=== PATIENT | female | born 1965 | race Caucasian/White ===

== ENCOUNTER 2017-02-05 11:13 | Emergency (ER) | payer OTHER ==
[2017-02-05 12:24] LABS: Blood, Urine Trace (Negative); Glucose, Urine (Dipstick) Negative (Negative); Leukocyte Small (Negative); Nitrite Positive (Negative); Protein, Urine (Dipstick) Negative (Neg-Trace); Specific Gravity, Urine 1.025 (1.005-1.030); pH, Urine 5.5 (5.0-9.0)
[2017-02-05 12:40] LABS: Bilirubin Negative (Negative); Clarity Cloudy (Clear)
[2017-02-05 12:41] LABS: Bacteria/HPF 4+ HPF (None Seen); Crystals/HPF 2+ CA OXALATE HPF (Negative)
[2017-02-05 12:45] LABS: Amphetamine Not Detected (NotDetected); Barbiturates Screen Not Detected (NotDetected); Benzodiazepine Screen Detected (NotDetected); Cocaine Metabolite Screen Not Detected (NotDetected); Medtox Control Line Valid? VALID (VALID); Methadone Not Detected (NotDetected); Methamphetamine Not Detected (NotDetected); Opiate Screen Not Detected (NotDetected); Oxycodone Screen Not Detected (NotDetected); Phencyclidine (PCP) Not Detected (NotDetected); THC/Cannabinoid Screen Detected (NotDetected); Tricyclic Screen Not Detected (NotDetected)
[2017-02-05 12:51] LABS: Band 1 % (5-11); Eosinophils 2 % (0-10); Lymphocytes 34 % (21-51); MDiff Complete? YES; Mean Corpuscular HGB CONC 36.9 g/dL (32.0-36.0); Mean Corpuscular Hemoglobin 39.8 pg (27.0-31.0); Mean Platelet Volume 8.5 fL (7.4-10.4); Monocytes 7 % (0-10); Neutrophil 56 % (42-75); PLT Morphology Comment PLATELETS DECREASED ON SLIDE; Platelet Count 57 thou/uL (130-400); Red Blood Cell (RBC) Count 3.27 mill/uL (4.20-5.40)
[2017-02-05 12:58] LABS: White Blood Cell (WBC) Count 4.5 thou/uL (4.8-10.8)
[2017-02-05 13:09] LABS: ALT (SGPT) 78 U/L (0-55); AST (SGOT) 112 U/L (5-34); Alcohol Less than 10 mg/dL (Less than 10); Alkaline Phosphatase 157 U/L (40-150); Anion Gap 11 mmol/L (10-20); BUN (Urea Nitrogen) 9 mg/dL (9.8-20.1); Bilirubin, Total 1.3 mg/dL (0.2-1.2); Calc. Creatinine Clearance 0 mL/min (70-130); Calcium 8.4 mg/dL (7.8-10.44); Carbon Dioxide 27 mmol/L (22-29); Chloride 104 mmol/L (98-107); Estimated GFR-MDRD Greater than 90; Globulin 4.3 g/dL (2.4-3.5); Glucose 103 mg/dL (70-105); Potassium 4.3 mmol/L (3.5-5.1); Protein, Total 7.3 g/dL (6.0-8.3); Sodium 138 mmol/L (136-145)
[2017-02-05] MEDS ORDERED: Cephalexin 250 MG CAP ONE (13:51)
== END 2017-02-05 14:14 | disposition home or self-care (01) ==
LOC: BURERS 11:13
DX: K72.90 Hepatic failure, unspecified without coma (principal); N39.0 Urinary tract infection, site not specified; B19.20 Unspecified viral hepatitis C without hepatic coma; F32.9 Major depressive disorder, single episode, unspecified; F17.210 Nicotine dependence, cigarettes, uncomplicated; Z79.899 Other long term (current) drug therapy
CPT/HCPCS: 36415; 80053; 80306; 80307; 81003; 81015; 82140; 84443; 85025; 87077; 87086; 87186; 99284

== ENCOUNTER 2017-02-21 16:34 | Outpatient (CLI) | payer OTHER ==
[2017-02-21 17:30] LABS: Amphetamine Not Detected (NotDetected); Cocaine Metabolite Screen Not Detected (NotDetected); Methamphetamine Not Detected (NotDetected); Opiate Screen Not Detected (NotDetected); Phencyclidine (PCP) Not Detected (NotDetected); THC/Cannabinoid Screen Detected (NotDetected)
[2017-02-21 17:31] LABS: Barbiturates Screen Not Detected (NotDetected); Benzodiazepine Screen Detected (NotDetected); Medtox Control Line Valid? VALID (VALID); Methadone Not Detected (NotDetected); Oxycodone Screen Not Detected (NotDetected); Tricyclic Screen Not Detected (NotDetected)
== END 2017-02-21 16:35 | disposition home or self-care (01) ==
LOC: HPCALD 16:34
PROVIDERS: ATTEND Family Medicine
DX: G89.29 Other chronic pain (principal)
CPT/HCPCS: 80306

== ENCOUNTER 2017-03-13 14:18 | Emergency (ER) | payer OTHER ==
--- NOTE | 2017-03-13 18:44 | RAD ---
RIGHT HAND 3 VIEWS: Date: 03/13/17 No fracture or acute bony change seen. There may have been an old injury at the base of the proximal phalanx of the index finger. The carpal bones appear intact, as do the distal radius and ulna. IMPRESSION: Minor chronic changes, but no acute finding. POS: HOME
== END 2017-03-13 15:15 | disposition home or self-care (01) ==
LOC: BURERS 14:18
DX: S63.501A Unspecified sprain of right wrist, initial encounter (principal); S60.221A Contusion of right hand, initial encounter; F32.9 Major depressive disorder, single episode, unspecified; W19.XXXA Unspecified fall, initial encounter

== ENCOUNTER 2017-04-05 13:51 | Outpatient (CLI) | payer OTHER ==
--- NOTE | 2017-04-05 21:13 | CT ---
CT ABDOMEN AND PELVIS WITHOUT CONTRAST 04/05/[address] of the abdomen and pelvis was done without oral or IV contrast in a renal stone protocol. Axial slices were acquired. No IV or oral contrast was used. After acquisition of axial slices, see nal reconstructions were done. A 3 cm mass is present in the right lower lobe posteriorly on some of the top slices. Its margins ar e not entirely regular and so the possibility of neoplasm is raised. There is a little bit of streak ing lateral to it that could be residual from infection. At any rate, this findings needs further wo rkup. The liver was unremarkable in appearance. The spleen is upper normal in size at 13.6 cm in length. N o abnormality of the pancreas was appreciated within the limitations of this noncontrast study. No a drenal masses were seen. Regarding the kidneys, there were no measureable renal calculi. There is a little increased density of some of the renal pyramids, but no renal or ureteral calculi were observed. There might be a smal l parapelvic cyst in the right kidney. The right renal pelvis is a little prominent in size but ther e is not true hydronephrosis and no specific ureteral dilation was seen on this side. Regarding the left side where there is flank pain, I could not find any obvious reason for such. There is a mildly increased amount of fecal material in the colon but no sign of obstruction. No free air or free flu id was seen. CT of the pelvis showed no pelvic masses, fluid collections or inflammatory changes. Finally, there is very dense arteriosclerosis involving the aorta and iliac arteries. This calcification is denser than is often seen for age. IMPRESSION: 1. 3 cm right lower lobe mass with slightly irregular edges. This should be considered as neopl asm until proven otherwise. Pulmonary referral recommended. 2. Borderline size of the spleen. 3. Mild constipation. 4. No evidence of renal obstruction or ureteral calculi. 5. Severe arteriosclerosis. Code T POS: HOME
== END 2017-04-05 13:52 | disposition home or self-care (01) ==
LOC: BURCT 13:51
PROVIDERS: ATTEND Family Medicine
DX: N39.8 Other specified disorders of urinary system (principal); R10.9 Unspecified abdominal pain; Z87.442 Personal history of urinary calculi; R91.8 Other nonspecific abnormal finding of lung field; K59.00 Constipation, unspecified; I70.90 Unspecified atherosclerosis
CPT/HCPCS: 74176